=== PATIENT | male | born 1995 | race African-American/Black ===

== ENCOUNTER 2021-10-06 17:17 | Emergency (ER) | payer OTHER ==
[~2021-10-06] VITALS: Ht 175.3 cm; Wt 71.8 kg
[2021-10-06 20:42] LABS: RSV AMPLIFICATION NEGATIVE (NEGATIVE)
[2021-10-06 21:34] VITALS: BP 144/74
== END 2021-10-06 22:33 | disposition home or self-care (01) ==
LOC: M ED 17:17
DX: U07.1 COVID-19 (principal)